=== PATIENT | male | born 1975 | race Caucasian/White ===

== ENCOUNTER 2018-08-26 21:00 | Emergency (ER) | payer OTHER ==
[~2018-08-26] VITALS: Ht 165.1 cm; Wt 88.5 kg
[2018-08-26 23:36] VITALS: BP 108/75
== END 2018-08-26 23:37 | disposition home or self-care (01) ==
LOC: ED 21:00
DX: J11.1 Influenza due to unidentified influenza virus with other respiratory manifestations (principal); Z87.442 Personal history of urinary calculi

== ENCOUNTER 2019-05-07 18:17 | Emergency (ER) | payer OTHER ==
[~2019-05-07] VITALS: Ht 165.1 cm; Wt 80.3 kg
[2019-05-07 18:22] VITALS: Ht 165.1 cm; Wt 80.3 kg
[2019-05-07 20:04] LABS: AMPHETAMINE QUAL UR NONE DETECTED (See below)
[2019-05-07 21:03] VITALS: BP 116/75
== END 2019-05-07 21:03 | disposition home or self-care (01) ==
LOC: ED 18:17
PROVIDERS: Emergency Medicine
DX: R07.89 Other chest pain (principal); R51 Headache; R06.02 Shortness of breath; Z87.442 Personal history of urinary calculi
CPT/HCPCS: 36600